=== PATIENT | male | born 1985 | race Asian ===

== ENCOUNTER 2020-09-04 08:02 | Emergency (ER) | payer OTHER ==
[2020-09-04 08:21] VITALS: PULSE 94; BMI 29.9
[2020-09-04 09:19] VITALS: BP 112/70; TEMP 98.2
== END 2020-09-04 09:49 | disposition home or self-care (01) ==
LOC: JER 08:02
DX: R19.7 Diarrhea, unspecified (principal); Z11.52 Encounter for screening for COVID-19
CPT/HCPCS: 87045; 87046; 87324; 87449; 99283-25; C9803; U0003; U0005

== ENCOUNTER 2021-06-10 18:46 | Emergency (ER) | payer OTHER ==
[2021-06-10 18:51] VITALS: BP 128/76; PULSE 95; TEMP 98; BMI 29.9
[2021-06-10] MEDS ORDERED: LIDOCAINE 5% TOPICAL PATCH TP ONE (19:32)
[2021-06-10] MEDS ORDERED: KETOROLAC TROMETHAMINE 15 MG/ML VIAL IM ONE (19:32)
[2021-06-10] MEDS ORDERED: LIDOCAINE 5% TOPICAL PATCH ONE (19:49)
[2021-06-10] MEDS ORDERED: KETOROLAC TROMETHAMINE 15 MG/ML VIAL ONE (19:49)
[2021-06-10] MEDS ORDERED: LIDOCAINE PATCH REMOVAL MC SCH (22:00)
== END 2021-06-10 20:41 | disposition home or self-care (01) ==
LOC: JERFT 18:46
PROC: 3E0233Z Introduction of Anti-inflammatory into Muscle, Percutaneous Approach (ICD-10-PCS; principal; 2021-06-10)
DX: M54.50 Low back pain, unspecified (principal); M54.32 Sciatica, left side
CPT/HCPCS: 72070-TC-FY; 72100-TC-FY; 99284-25